=== PATIENT | female | born 1955 | race Caucasian/White ===

== ENCOUNTER 2023-06-27 07:40 | Outpatient (CLI) | payer MEDICARE, OTHER, SELFPAY ==
--- NOTE | 2023-06-27 07:57 | ECG_ITS ---
Measurements Intervals [place] Rate: 77 P: 50 ID: [id number] QRS: 23 QRSD: 92 T: 49 QT: 368 QTc: 417 Interpretive Statements SINUS RHYTHM NORMAL ECG NO PREVIOUS ECG AVAILABLE FOR COMPARISON Electronically Signed On 06-27-2023 13:59:17 CDT by Rob Goodman M.D.
[2023-06-27 08:13] LABS: Hematocrit 35.6 % (37.0-47.0); Hemoglobin 11.6 g/dL (12.0-15.0); Mean Corpuscular HGB Conc 32.6 g/dl (32-36); Mean Corpuscular Hemoglobin 30.3 pg (26-34); Mean Platelet Volume 8.4 fl (7.4-10.4); Platelet Count Result 374 k/mm3 (150-375); Red Blood Count 3.83 M/mm3 (4.2-5.4); Red Cell Distribution Width 14.1 % (11.5-14.5); White Blood Count 10.4 K/mm3 (4.5-10.0)
[2023-06-27 08:25] LABS: Anion Gap 7 mmol/L (8-16); Blood Urea Nitrogen 13 mg/dL (7-17); Calcium 10.1 mg/dL (8.4-10.2); Carbon Dioxide 26 mmol/L (22-30); Chloride 102 mmol/L (98-107); Estimated Glomerular Filt Rate > 60; Glucose 116 mg/dL (65-110); Potassium 3.6 mmol/L (3.4-5.0); Sodium 135 mmol/L (137-145)
[2023-06-27 08:28] LABS: Prothrombin Time 13.1 Seconds (11.1-14.7)
[2023-06-27 08:42] LABS: Hemoglobin A1C 6.4 % (<5.7)
[2023-06-27 09:07] LABS: Amorphous Sediment Urine Present; Appearance Urine Turbid (Clear); Bacteria Urine 1+ /hpf; Bilirubin Urine Negative (Negative); Blood Urine Negative (Negative); Color Urine Yellow (Yellow); Glucose Urine UA Negative (Negative); Hyaline Casts Urine Present /lpf; Ketones Urine Negative (Negative); Leukocyte Esterase Ur 1+ LEU/UL (Negative); Nitrate Urine Negative (Negative); Non Pathogenic Casts 0-2; Protein Urine Negative (Negative); Specific Grav Ur 1.018 (1.001-1.035); Squamous Epithelial Cell Urine Occasional /hpf (Few); Urobilinogen Urine 0.2 mg/dL (<2.0); WBC Urine 21-50 /hpf
[2023-06-27 09:36] LABS: Add Urine Microscopic? YES
== END 2023-06-27 07:41 | disposition home or self-care (01) ==
PROVIDERS: PCP Internal Medicine Rheumatology; Visit Provider Neurological Surgery
DX: G57.30 Lesion of lateral popliteal nerve, unspecified lower limb (principal); Z01.818 Encounter for other preprocedural examination
CPT/HCPCS: 36415; 80048; 81001; 83036; 85027; 85610; 85730; 87077; 87086; 87186; 93005

== ENCOUNTER 2023-07-03 01:45 | Day surgery (SDC) | payer MEDICARE, OTHER, SELFPAY ==
[2023-06-25 13:17] VITALS: BMI 19.9
--- NOTE | 2023-06-25 13:40 | PC.NURSE ---
PRE-OP INSTRUCTIONS, PLEASE READ CAREFULLY Report to the Outpatient Waiting Room, entrance under the green pavilion located off [facility], at time _0800_ on date _07/03/23_. Planned Procedure Time: _1000_. Time changes happen often and if your time is changed the preop area will call you the afternoon before. - You and your visitor will be asked to self-screen and do not enter if you have any COVID symptoms. - A mask is optional within the hospital at this time. Patients may have clear liquids (water, carbonated beverages, clear teas, apple juice) until 3 hours prior to surgery (0700 AM) with a maximum of 20 ounces. - No food from midnight until time of surgery Take the following medications with a SIP of water the morning of surgery: _LEVOTHYROXINE, VENLAFAXINE, VERAPAMIL_ DO NOT STOP ANY OF YOUR OTHER PRESCRIPTION MEDICATIONS PRIOR TO SURGERY ?EXCEPT THE FOLLOWING Medications to discontinue per DR. INFANTE/DR. MADDOX -_PT STATES STOPPING ASPIRIN & CELEBREX 06/18/23_ Medications to discontinue per ANESTHESIA -_MULTIVITAMIN/SUPPLEMENTS 3 DAYS PRIOR TO SURGERY, Date to take last dose 06/29/23_ Please no make-up, nail japanese, hairspray, perfume, deodorant, or body powder the day of surgery. No jewelry (including any body piercings) or valuables the day of surgery, leave them at home. Please take a shower or bath the night before, or the morning of, surgery with an antibacterial soap. Wear comfortable, loose fitting clothing. - Jewelry must be removed prior to entering the operating room. Rings and piercings that are not removed may be cut off. - The hospital will not accept responsibility for valuables. - Please leave all valuables, including medications, at home the day of surgery. If you are going home after surgery, a licensed operator and truck driver must drive you home. - NO public transportation without another adult if you receive anesthesia. - We recommend that an adult stay with you for 24 hours following discharge. - We also recommend that you do not drive, make important decision, drink alcoholic beverages, or take any drugs that were not prescribed by your health care provider for at least 24 hours after your discharge time. Follow any additional instructions given to you from your surgeon. If you or anyone in your household have experienced Covid symptoms in the past week, please notify your surgeon or the nurse liaison at the phone number below for possible testing. Telephone instructions given to _PATIENT_and asked if any additional questions and then verbalized understanding. Patient advised to call surgeon office or pre surgery nurse liaison [phone] if any additional questions.
[2023-07-03 08:12] VITALS: BP 129/76; PULSE 89; RESP 18; TEMP 37; O2SAT 97
--- NOTE | 2023-07-03 08:29 | SUR.PREOP ---
Large open wound to left lower leg. Smaller wound to inner rt knee. Dr Elena looked at these and is proceeding with surgery. No SCDS applied due to surgery on right leg and wound on left.
[2023-07-03] MEDS: LACTATED RINGERS 1,000 ML 30 ML IV CONT ×2 (08:39→11:27)
[2023-07-03 08:40] LABS: Glucose Point of Care 121 mg/dl (65-105)
[2023-07-03] MEDS: ceFAZolin 2 GM/D5W 50 ML 2 GM/50 ML BAG IVPB (10:21)
--- NOTE | 2023-07-03 10:23 | PM.IMHP ---
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 She has weakness of dorsiflexion on the right as well as numbness in the dorsum of the foot. She is not having new bowel bladder or constitutional problems. She does not have any other specific muscle group weakness or dermatomal numbness. Review of Systems Review of Systems: Patient denies shortness of breath, cough, fever, chills, nausea, vomiting, weight loss, weight gain, chest pain, dysuria. She has lower extremity weakness and numbness as above. Review of systems is otherwise negative on 12 systems except as noted elsewhere. [facility] Past Medical History Medical History (Updated 06/02/23 @ 08:50 by Vel Elena MD) Ankle weakness Bladder prolapse (~2010) Breast cancer, left breast (~2019) Carpal tunnel syndrome on both sides (~2018) Hypothyroidism Right foot drop Sleep apnea Stroke (01/09/21) Type 2 diabetes mellitus Surgical History Surgical History (Updated 08/26/22 @ 11:56 by Vel Elena MD) H/O lumbar discectomy History of arthroplasty of right knee (05/21/22) History of lumbar fusion History of lumbar laminectomy History of lumpectomy of left breast (~2019) History of right hip replacement (11/03/18) Social History Social History (Updated 02/24/23 @ 11:19 by Savi Yung MA) Social History: Dara is very confident filling out medical forms. In the last 12 months she has not received assistance from an organization or program. Smoking packs per day: 1.5 Smoking cigarettes per day: 30.0 Years smoked: 49 Smoking pack-years: 73.50 Smoking status: Current every day smoker Tobacco type: cigarettes Second hand tobacco smoke exposure: Yes Alcohol intake: current Drinks per week: 2 Substance use: never Substance use type: does not use Lack of Transportation: No Lack of Food: Never True Current Housing: I Have Housing Concerned About Future Housing: No Difficulty Paying Gas/Electric Bills: No Difficulty Paying for Meds: No Currently Unemployed: No Education: Associate Degree Difficulty w/ Childcare or Family Care: No Living arrangements: alone Spiritual care concerns: No Meds Home Medications and Allergies Home Medications Medication Instructions Recorded Confirmed Type anastrozole 1 mg tablet 1 mg PO DAILY 08/26/22 06/25/23 History levothyroxine 50 mcg tablet 50 mcg PO DAILY 08/26/22 06/25/23 History losartan 100 mg tablet 100 mg PO DAILY 08/26/22 06/25/23 History pantoprazole 40 mg tablet,delayed 40 mg PO QAM 08/26/22 06/25/23 History release rosuvastatin 40 mg tablet 40 mg PO HS 08/26/22 06/25/23 History semaglutide 14 mg tablet (Rybelsus) 14 mg PO DAILY 08/26/22 06/25/23 History venlafaxine 150 mg 150 mg PO QAM 08/26/22 06/25/23 History capsule,extended release 24 hr aspirin 325 mg capsule 325 mg PO DAILY 06/25/23 06/25/23 History biotin 500 mcg capsule 2,500 mcg PO DAILY 06/25/23 06/25/23 History calcium carbonate 600 mg-vitamin 1 tablet PO BID 06/25/23 06/25/23 History D3 10 mcg (400 unit) tablet (Calcium 600 + D(3)) celecoxib 200 mg capsule (Celebrex) 200 mg PO DAILY 06/25/23 06/25/23 History cetirizine 10 mg capsule (Zyrtec) 10 mg PO HS 06/25/23 06/25/23 History cyanocobalamin (vitamin B-12) 1,000 mcg PO DAILY 06/25/23 06/25/23 History 1,000 mcg tablet diphenhydramine 25 1 tablet PO HS 06/25/23 06/25/23 History mg-acetaminophen 500 mg tablet (Tylenol PM Extra Strength) doxazosin 1 mg tablet 1 mg HS 06/25/23 06/25/23 History glimepiride 4 mg tablet 4 mg QAM 06/25/23 06/25/23 History glucosamine 750 iy-cthewquiavy-bis 1 tablet PO BID 06/25/23 06/25/23 History no1 644 mg-C 30 mg-gato
--- NOTE | 2023-07-03 10:27 | WPDHPUPDATE1 ---
History and Physical Update Update Date/Time: 07/03/23 10:27 History and Physical has been reviewed, including an updated exam of the patient. There are NO changes in the patient's condition. Risks, benefits, and alternatives have been discussed and questions answered. Patient agrees to proceed with procedure.
[2023-07-03] MEDS: LIDO 1%/EPINEPHRINE 1:100,000 20 ML VIAL 10 ML INFILTRATE (11:03)
[2023-07-03 11:27] VITALS: BP 144/78; PULSE 83; RESP 16; TEMP 36.6; O2SAT 100
[2023-07-03 11:33] LABS: Glucose Point of Care 96 mg/dl (65-105)
[2023-07-03 11:45] VITALS: BP 136/66; PULSE 77; RESP 22; O2SAT 96
--- NOTE | 2023-07-03 11:51 | W.PM.PROC2 ---
Procedure Note - Detailed Date of Procedure 07/03/23 Pre-op Diagnosis right peroneal neuropathy at fibular head Post-op Diagnosis Same Procedure Performed Right peroneal neurolysis at the fibular head Surgeon Vel Elena MD Anesthesia General Description of Procedure Patient was brought to the operating room in the supine position, was sedated, and placed under general anesthesia in routine fashion. She was then turned into the left lateral decubitus position. The right leg was flexed at the knee in placed over the pad between her legs. There of operation on the lateral aspect of the knee was examined, marked for incision, prepped and draped in routine sterile fashion. Incision was marked in curvilinear fashion underneath the right fibular head and proximally and distally to it. This area was injected with 0.5% lidocaine with [id number] epinephrine. Intravenous antibiotics given prior to incision. Incision was made with a 10 blade scalpel. Metzenbaum scissors and toothed forceps were used to complete the soft tissue until the nerve was discovered behind the fibular head. This was followed towards the muscle fascia in the anterolateral taylor. A plane was dissected with the fascia. Metzenbaum scissors were used to cut the fascia until a [place] could be placed above the nerve distally to confirm lack of compression. The wound was copiously irrigated with bacitracin irrigation all bleeding stopped with bipolar and Bovie cautery and Gelfoam thrombin powder. The wound was then closed in layered fashion with 3-0 Vicryl interrupted sutures in the dermis and a running 4-0 Monocryl subcuticular stitch in the skin was dressed with Dermabond. The patient was not awakened in the operating room was taken to the recovery room in stable condition. There were no immediate complications of this operation. All counts were reported correct in the case. Blood loss was minimal. The patient was neurologically at her baseline postoperatively. Estimated Blood Loss 1 IV Fluids 500 Complications None Condition Stable Disposition PACU [facility] Billing Surgery - Charge Forward: Surgery Billing
[2023-07-03 12:00] VITALS: BP 126/74; PULSE 74; RESP 16; O2SAT 94
[2023-07-03 12:25] VITALS: BP 143/68; PULSE 77
[2023-07-03 12:50] VITALS: BP 94/75; PULSE 75
== END 2023-07-03 13:06 | disposition home or self-care (01) ==
PROVIDERS: PCP Internal Medicine Rheumatology; Visit Provider Neurological Surgery
PROC: (CPT 64727; principal; 2023-07-03 10:00)
DX: G57.31 Lesion of lateral popliteal nerve, right lower limb (principal); E11.9 Type 2 diabetes mellitus without complications; E03.9 Hypothyroidism, unspecified; G47.30 Sleep apnea, unspecified; Z85.3 Personal history of malignant neoplasm of breast; Z86.73 Personal history of transient ischemic attack (TIA), and cerebral infarction without residual deficits; Z98.1 Arthrodesis status; F17.210 Nicotine dependence, cigarettes, uncomplicated; Z79.811 Long term (current) use of aromatase inhibitors; Z79.85 Long-term (current) use of injectable non-insulin antidiabetic drugs; Z79.82 Long term (current) use of aspirin; Z79.84 Long term (current) use of oral hypoglycemic drugs
CPT/HCPCS: 64708; 82948; J0330; J0690; J1100; J2250; J2405; J2704; J3010; J7120